=== PATIENT | male | born 1960 | race Caucasian/White ===

== ENCOUNTER → 2017-05-08 | Outpatient (CLI) | payer BC ==
--- NOTE | 2017-05-08 18:08 | PN ---
PROGRESS NOTE DATE OF SERVICE: 05/08/2017 56-year-old gentleman has been followed in Sleep Center for treatment of obstructive sleep apnea-hypopnea syndrome. The patient continues successfully using his CPAP equipment every night for the whole night without any significant problem with the mask pressure or humidification. I checked his CPAP unit. CPAP pressure is 8 cm of water. Leak is only 11 L/minute which is normal range. Apnea-hypopnea index only 0.7, which is perfect. Usage is 30/30 nights for more than 4 hours. Average usage is 6.9 hours. [place] Sleepiness Scale today is 8. MEDICATIONS: 1. Eyedrops for the dry eyes. 2. Vitamins. 3. PHYSICAL EXAM: 56-year-old gentleman without distress, BP 123/80, HR 68, RR 16, height 6 foot, 0, weight 220, BMI 29.8. The patient has lost 4 pounds since previous visit. Temperature 98.3. Oxygen saturation on room air 98%. HEENT: Oropharynx extremely low position of soft palate. Neck Supple, no JVD. Thyroid is not palpable. LUNGS Clear to percussion and to auscultation. Good air exchange. No wheezing or rhonchi. HEART S1, S2 regular. No murmurs, gallops, or rubs. ABDOMEN : Slightly obese. Soft and nontender. Bowel sounds are present. No organomegaly appreciated. EXTREMITIES No clubbing or cyanosis. ROOF PROMENADE TILE SETTER Awake, alert, and oriented X3. Cranial nerves 2 to 7 intact. There is no fasciculation or atrophy. noted. No focal deficits observed. IMPRESSION: 1. Obstructive sleep apnea-hypopnea syndrome on full control with CPAP at 8 cm of water. Patient demonstrated 100% compliance with treatment benefitting from treatment. 2. Overweight, close to obesity; BMI 29.8. 3. Dry eyes. 4. Status post arthroscopic knee surgery. PLAN: 1. Continue treatment with CPAP every night for the whole night. 2. Watching and losing weight. 3. Sleep hygiene with regular time in bed for at least 8 hours. 4. No driving if feeling sleepiness. 5. Prescription for all necessary CPAP supplies. 6. Followup visit in 1 year or earlier if patient has any problems. Thank you very much for allowing me to participate in management of your patient. Sincerely, Jamel Garcia MD, PhD, FAASM Diplomat of [employer] [employer] [place] [employer] Fuel Cell Test Engineer of [facility] [place] MMANIKA / DANA: [id number] /
== END | disposition home or self-care (01) ==
LOC: SLEEP 16:43
PROVIDERS: ATTEND Internal Medicine
DX: G47.33 Obstructive sleep apnea (adult) (pediatric) (principal); H04.123 Dry eye syndrome of bilateral lacrimal glands; E66.9 Obesity, unspecified; Z68.29 Body mass index [BMI] 29.0-29.9, adult; Z79.899 Other long term (current) drug therapy; Z98.890 Other specified postprocedural states

== ENCOUNTER 2018-03-02 17:59 | Emergency (ER) | payer BC ==
[2018-03-02 18:11] VITALS: RESP 18
[2018-03-02 18:38] LABS: Basophils % (A) 0 %; Eosinophils # (A) 0.1 k/uL (0-0.7); Eosinophils % (A) 2 %; HCT 40.6 % (39.0-53.0); HGB 13.3 gm/dL (13.0-17.5); Lymphocytes # (A) 1.7 k/uL (1.0-4.8); Lymphocytes % (A) 38 %; MCH 30.2 pg (25.0-35.0); MCHC 32.7 g/dL (31.0-37.0); MCV 92.3 fL (80.0-100.0); Mean Platelet Volume 8.3; Monocytes # (A) 0.4 k/uL (0-1.0); Monocytes % (A) 8 %; Neutrophils # (A) 2.3 k/uL (1.3-7.7); Neutrophils % (A) 50 %; Platelet Count 181 k/uL (150-450); RDW 13.2 % (11.5-15.5); WBC 4.6 k/uL (3.8-10.6)
[2018-03-02 18:48] LABS: ALT 37 U/L (21-72); AST 27 U/L (17-59); Albumin 4.3 g/dL (3.5-5.0); Alkaline Phosphatase 67 U/L (38-126); Anion Gap 8 mmol/L; Blood Urea Nitrogen 19 mg/dL (9-20); Calcium 9.4 mg/dL (8.4-10.2); Carbon Dioxide 26 mmol/L (22-30); Chloride 107 mmol/L (98-107); Glucose 107 mg/dL (74-99); Magnesium 1.9 mg/dL (1.6-2.3); Potassium 3.9 mmol/L (3.5-5.1); Sodium 141 mmol/L (137-145); Total Bilirubin 0.6 mg/dL (0.2-1.3); Total Protein 6.9 g/dL (6.3-8.2)
[2018-03-02 18:49] LABS: Partial Thromboplastin Time 23.4 sec (22.0-30.0); Prothrombin Time 9.9 sec (9.0-12.0)
[2018-03-02 18:52] LABS: Creatine Kinase 174 U/L (55-170)
--- NOTE | 2018-03-02 18:56 | XR ---
EXAMINATION TYPE: XR chest 2V DATE OF EXAM: 03/02/2018 COMPARISON: NONE HISTORY: Chest pain TECHNIQUE: Frontal and lateral views of the chest are obtained. FINDINGS: Heart and mediastinum are normal. Lungs are clear. Diaphragm is normal. Bony thorax appear s normal. IMPRESSION: Normal chest.
[2018-03-02 19:04] LABS: Creatine Kinase MB 1.9 ng/mL (0.0-2.4); Troponin I <0.012 ng/mL (0.000-0.034)
--- NOTE | 2018-03-02 19:09 | ED ---
General Adult HPI - General Chief complaint: Chest Pain Stated complaint: Chest Pain Time Seen by Provider: 03/02/18 19:08 Source: patient Mode of arrival: ambulatory Limitations: no limitations - History of Present Illness Initial comments: Lee byers and is a 57-year-old male who presents the emergency department today for evaluation of intermittent left-sided chest wall and shoulder pain. Patient reports that last week he was on vacation, he stayed home and mostly tended to projects her in the house including laying new mulch and getting projects done around the house. She reports that beginning on Friday he began having stabbing pains in his left lateral chest radiating into his left axilla. Worse with any movement of his arm or deep breathing. Pains were sudden and sharp and would cause him to hold his breath. Pains lasted for seconds and went away. Pains are not associated with any progressive or persistent shortness of breath, lightheadedness, diaphoresis or palpitations. Pain is not exertional in nature. Patient reports that he went to see his primary care physician today, he states that he was sitting in the waiting room with his arm up on the chair next to him when he had one of these pains. His primary care physician advised him come to the ER for cardiac evaluation. Patient is relatively healthy, nonsmoker, no history of hypertension, hyperlipidemia or diabetes. He has no family history of early cardiac disease. He has no personal history of cardiac disease. He does report that he sleeps with a CPAP and became concerned that perhaps he was having a pneumonia due to his CPAP he has heard recently that there are problems the CPAP machine is not being cleaned properly. - Related Data Home Medications Medication Instructions Recorded Confirmed Eye Lubricant Combination No.1 1 applic BOTH EYES DAILY 03/02/18 03/02/18 [[place]] Fexofenadine HCl [Lashanda Allergy] 180 mg PO DAILY 03/02/18 03/02/18 [place]-3 Fatty Acids/Fish Oil [Fish 1 each PO DAILY 03/02/18 03/02/18 Oil 1,000 mg Softgel] Super Digest 1 tab PO DAILY 03/02/18 03/02/18 Thyratone 1 tab PO DAILY 03/02/18 03/02/18 Allergies Allergy/AdvReac Type Severity Reaction Status Date / Time No Known Allergies Allergy Verified 03/02/18 19:50 Review of Systems ROS Statement: Those systems with pertinent positive or pertinent negative responses have been documented in the HPI. ROS Other: All systems not noted in ROS Statement are negative. Past Medical History Additional Past Medical History / Comment(s): CPAP at night History of Any Multi-Drug Resistant Organisms: None Reported Additional Past Surgical History / Comment(s): right knee orthopedic surgery Past Psychological History: No Psychological Hx Reported Smoking Status: Never smoker Past Alcohol Use History: Daily Past Drug Use History: None Reported General Exam - General Exam Comments Initial Comments: GENERAL: Patient is well-developed and well-nourished. Patient is nontoxic and well- hydrated and is in no distress. HENT: Normocephalic, Atraumatic. Neck is soft and supple. No significant lymphadenopathy is noted. Oropharynx is clear. Moist mucous membranes. Neck has full range of motion without eliciting any pain. EYES: The sclera were anicteric and conjunctiva were pink and moist. Extraocular movements were intact and pupils were equal round and reactive to light. Eyelids were unremarkable. PULMONARY: Unlabored respirations. Good breath sounds bilaterally. No audible rales rhonchi or wheezing was noted. CARDIOVASCULAR: There is a regular rate and rhythm without any murmurs gallops or rubs. ABDOMEN: Soft and nontender with normal bowel sounds. SKIN: Skin is clear with no lesions or rashes and otherwise unremarkable. NEUROLOGIC: Patient is alert and oriented x3. Cranial nerves II through XII are grossly intact. Motor and sensory are also intact. Normal speech, volume and content. Symmetrical smile. MUSCULOSKELETAL: Normal extremities with adequate strength and full range of motion. No lower extremity swelling or edema. No calf tenderness. Some pain with movement of the left shoulder, full range of motion noted the joint is not red or erythematous, no signs of infection LYMPHATICS: No significant lymphadenopathy is noted PSYCHIATRIC: Normal psychiatric evaluation. Limitations: no limitations Limitations: no limitations Course Vital Signs 03/02/18 03/02/18 18:07 20:19 Temperature 98.4 F 98.3 F Pulse Rate 73 77 Respiratory 18 18 Rate Blood Pressure 137/80 133/78 O2 Sat by Pulse 98 98 Oximetry EKG Findings - EKG Comments: EKG Findings:: EKG at 1819, rate is 58, rhythm is sinus bradycardia, normal axis , normal intervals, no acute ST elevations or depressions no evidence of acute ischemia or infarction. Medical Decision Making - Medical Decision Making Patient was seen and evaluated, history was obtained from the patient Patient presenting to the ED via private vehicle for evaluation of left-sided chest wall pain worse with movement of his arm. Pain was worse on Friday and has progressively improved since that time however his insisted he be evaluated today. I have a high suspicion for musculoskeletal chest pain, however given the patient's age a Cardiac workup was ordered Chest x-ray with no acute findings EKG is sinus bradycardia with no acute findings Troponin negative, CPK is mildly elevated, these results were discussed with patient and at bedside, at this time I do feel that considering the patient 's pain is improving over the past 2 days is reproducible and she'll is likely to his pain is secondary to a musculoskeletal cause. Patient are in agreement with this. At this time I feel the patient is stable for discharge home with outpatient follow-up. Return parameters including any worsening pain , diaphoresis, shortness breath, lightheadedness or new or concerning symptoms were discussed with the patient and his . All questions pertaining to care were answered best my ability patient was discharged home in stable condition. - Lab Data Result diagrams: 03/02/18 18:26 03/02/18 18:26 Lab Results 03/02/18 03/02/18 03/02/18 Range/Units 18:26 18:26 18:26 WBC 4.6 (3.8-10.6) k/uL RBC 4.40 (4.30-5.90) m/uL Hgb 13.3 (13.0-17.5) gm/dL Hct 40.6 (39.0-53.0) % MCV 92.3 (80.0-100.0) fL MCH 30.2 (25.0-35.0) pg MCHC 32.7 (31.0-37.0) g/dL RDW 13.2 (11.5-15.5) % Plt Count 181 (150-450) k/uL Neutrophils % 50 % Lymphocytes % 38 % Monocytes % 8 % Eosinophils % 2 % Basophils % 0 % Neutrophils # 2.3 (1.3-7.7) k/uL Lymphocytes # 1.7 (1.0-4.8) k/uL Monocytes # 0.4 (0-1.0) k/uL Eosinophils # 0.1 (0-0.7) k/uL Basophils # 0.0 (0-0.2) k/uL PT (9.0-12.0) sec INR (<1.2) APTT (22.0-30.0) sec Sodium 141 (137-145) mmol/L Potassium 3.9 (3.5-5.1) mmol/L Chloride 107 (98-107) mmol/L Carbon Dioxide 26 (22-30) mmol/L Anion Gap 8 mmol/L BUN 19 (9-20) mg/dL Creatinine 0.70 (0.66-1.25) mg/dL Est GFR (CKD-EPI)AfAm >90 (>60 ml/min/1.73 sqM) Est GFR (CKD-EPI)NonAf >90 (>60 ml/min/1.73 sqM) Glucose 107 H (74-99) mg/dL Calcium 9.4 (8.4-10.2) mg/dL Magnesium 1.9 (1.6-2.3) mg/dL Total Bilirubin 0.6 (0.2-1.3) mg/dL AST 27 (17-59) U/L ALT 37 (21-72) U/L Alkaline Phosphatase 67 (38-126) U/L Total Creatine Kinase 174 H (55-170) U/L CK-MB (CK-2) 1.9 (0.0-2.4) ng/mL CK-MB (CK-2) Rel Index 1.1 Troponin I <0.012 (0.000-0.034) ng/mL Total Protein 6.9 (6.3-8.2) g/dL Albumin 4.3 (3.5-5.0) g/dL 03/02/18 Range/Units 18:26 WBC (3.8-10.6) k/uL RBC (4.30-5.90) m/uL Hgb (13.0-17.5) gm/dL Hct (39.0-53.0) % MCV (80.0-100.0) fL MCH (25.0-35.0) pg MCHC (31.0-37.0) g/dL RDW (11.5-15.5) % Plt Count (150-450) k/uL Neutrophils % % Lymphocytes % % Monocytes % % Eosinophils % % Basophils % % Neutrophils # (1.3-7.7) k/uL Lymphocytes # (1.0-4.8) k/uL Monocytes # (0-1.0) k/uL Eosinophils # (0-0.7) k/uL Basophils # (0-0.2) k/uL PT 9.9 (9.0-12.0) sec INR 1.0 (<1.2) APTT 23.4 (22.0-30.0) sec Sodium (137-145) mmol/L Potassium (3.5-5.1) mmol/L Chloride (98-107) mmol/L Carbon Dioxide (22-30) mmol/L Anion Gap mmol/L BUN (9-20) mg/dL Creatinine (0.66-1.25) mg/dL Est GFR (CKD-EPI)AfAm (>60 ml/min/1.73 sqM) Est GFR (CKD-EPI)NonAf (>60 ml/min/1.73 sqM) Glucose (74-99) mg/dL Calcium (8.4-10.2) mg/dL Magnesium (1.6-2.3) mg/dL Total Bilirubin (0.2-1.3) mg/dL AST (17-59) U/L ALT (21-72) U/L Alkaline Phosphatase (38-126) U/L Total Creatine Kinase (55-170) U/L CK-MB (CK-2) (0.0-2.4) ng/mL CK-MB (CK-2) Rel Index Troponin I (0.000-0.034) ng/mL Total Protein (6.3-8.2) g/dL Albumin (3.5-5.0) g/dL Disposition Clinical Impression: Atypical chest pain Disposition: HOME SELF-CARE Condition: Good Instructions: Chest Pain (ED), Musculoskeletal Pain (ED) Is patient prescribed a controlled substance at d/c from ED?: No Referrals: Aissatou Cota MD [Primary Care Provider] - 1-2 days Time of Disposition: 20:06
[2018-03-02 20:20] VITALS: BP 133/78; PULSE 77; TEMP 98.3
== END 2018-03-02 20:19 | disposition home or self-care (01) ==
LOC: EC 17:59
DX: R07.89 Other chest pain (principal); M25.512 Pain in left shoulder; Z99.89 Dependence on other enabling machines and devices; Z79.899 Other long term (current) drug therapy
CPT/HCPCS: 36415; 71046; 80053; 82550; 82553; 83735; 84484; 85025; 85610; 85730; 93005; 99285

== ENCOUNTER → 2018-07-23 | Outpatient (CLI) | payer BC ==
[2018-07-24 03:29] LABS: ALT 32 U/L (10-49); AST 28 U/L (14-35)
== END | disposition home or self-care (01) ==
LOC: LABWHC1 17:09
PROVIDERS: ATTEND Podiatrist Foot & Ankle Surgery
DX: K74.60 Unspecified cirrhosis of liver (principal)
CPT/HCPCS: 36415; 84450; 84460

== ENCOUNTER → 2018-09-10 | Outpatient (CLI) | payer BC ==
[2018-09-11 02:35] LABS: ALT 45 U/L (10-49); AST 38 U/L (14-35)
== END | disposition home or self-care (01) ==
LOC: LABWHC1 16:33
PROVIDERS: ATTEND Podiatrist Foot & Ankle Surgery
DX: K74.60 Unspecified cirrhosis of liver (principal)
CPT/HCPCS: 36415; 84450; 84460

== ENCOUNTER → 2020-01-19 | Outpatient (CLI) | payer BC ==
--- NOTE | 2020-01-19 20:33 | SFUN ---
SLEEP CENTER FOLLOW UP NOTE DATE OF SERVICE: 01/19/2020 This patient is a 59-year-old gentleman who has been followed in Sleep Center for treatment of obstructive sleep apnea-hypopnea syndrome. The patient successfully continues to use his CPAP equipment every night for the whole night. No snoring with CPAP. [place] Sleepiness Scale is 6, which is acceptable. I checked his CPAP unit. CPAP pressure is 8 cm of water. Usage is 30/30 nights for more than 4 hours with average usage 7.3 hours per night. Leak is 17 L/minute, which is acceptable. Apnea-hypopnea index is 0.7, which is normal. MEDICATIONS: Eye drops for dry eyes. Vitamins. PHYSICAL EXAMINATION: GENERAL: A pleasant patient in no distress. VITAL SIGNS: BP 125/89, HR 70, RR 16, height 6 feet 0 inches, weight 208, body mass index 28.2, temperature 98.2, oxygen saturation at room air 97%. HEENT: PERRLA, EOMI. Evaluation of oropharynx showed tongue protrudes midline. Extremely low position of soft palate. Mallampati IV. NECK: Supple. No JVD. Thyroid is not palpable. Neck measures 16 inches in circumference. LUNGS: Clear to percussion and to auscultation. Good air exchange. No wheezing or rhonchi. HEART: S1, S2 regular. No murmurs, gallops or rubs. ABDOMEN: Soft and nontender. Bowel sounds are present. No organomegaly. EXTREMITIES: No clubbing or cyanosis. INVENTORY MANAGER: Awake, alert, and oriented X3. Cranial nerves 2 to 7 intact. There is no fasciculation or atrophy. noted. No focal deficits observed. IMPRESSION: 1. Obstructive sleep apnea-hypopnea syndrome. Patient demonstrated 100% compliance with treatment, benefitting from treatment. 2. History of dry eyes. 3. Status post arthroscopic knee surgery. 4. Overweight. PLAN: 1. Patient will continue to use PAP equipment every night for the whole night. 2. Sleep hygiene with regular time in bed for at least 7-1/2 to 8 hours. 3. Precautions related to driving. No driving if feeling sleepiness. 4. I will maintain all necessary prescription for PAP supplies including mask, tube, filters. 5. Watching weight. 6. No driving if feeling sleepiness. 7. Follow-up visit in one year, or earlier if patient has any problems. Thank you very much for allowing me to participate in the management of your patient. Sincerely, Jamel Garcia MD, PhD, FAASM Diplomat of [place] [employer] City Planning Engineer of [facility] [place] RONNIE / DANA: [id number] /
== END | disposition home or self-care (01) ==
LOC: SLEEP 16:47
PROVIDERS: ATTEND Internal Medicine
DX: G47.33 Obstructive sleep apnea (adult) (pediatric) (principal); Z99.89 Dependence on other enabling machines and devices; E66.3 Overweight; Z87.898 Personal history of other specified conditions; Z98.890 Other specified postprocedural states

== ENCOUNTER → 2020-09-28 | Outpatient (CLI) | payer BC ==
--- NOTE | 2020-09-28 19:56 | SFUN ---
SLEEP CENTER FOLLOW UP NOTE DATE OF SERVICE: 09/28/2020 This 59-year-old gentleman has been followed in Sleep Center for treatment of obstructive sleep apnea-hypopnea syndrome. The patient continues to use his CPAP equipment every night for the whole night. The last time I saw the patient was one year ago. No significant changes in his health condition. No snoring with the machine. [place] Sleepiness Scale is 5. I checked his CPAP unit. CPAP pressure is 8 cm of water. Usage is 30/30 nights for more than 4 hours. Average usage is 7.3 hours per night. Leak is 10 L/minute, which is acceptable. Apnea-hypopnea index is only 0.7, which is perfect. MEDICATIONS: Fish oil, antihistamine medications over the counter. PHYSICAL EXAMINATION: GENERAL: A pleasant patient in no distress. VITAL SIGNS: BP 138/84, HR 65, RR 15, height 6 feet 1/2 inch, weight 217.2 pounds. The patient's weight increased by 9 pounds since his previous visit. Temperature 98.7, oxygen saturation at room air 98%. HEENT: PERRLA, EOMI. Evaluation of oropharynx showed tongue protrudes midline. Extremely low position of soft palate. Mallampati IV. NECK: Supple. No JVD. Thyroid is not palpable. LUNGS: Clear to percussion and to auscultation. Good air exchange. No wheezing or rhonchi. HEART: S1, S2 regular. No murmurs, gallops or rubs. ABDOMEN: Soft and nontender. Bowel sounds are present. No organomegaly appreciated. EXTREMITIES: No clubbing or cyanosis. LINE HAUL OWNER OPERATOR: Awake, alert, and oriented X3. Cranial nerves 2 to 7 intact. There is no fasciculation or atrophy. noted. No focal deficits observed. IMPRESSION: 1. Obstructive sleep apnea-hypopnea syndrome. Patient demonstrated 100% compliance with treatment, benefitting from treatment. 2. History of dry eyes. 3. Allergies. 4. Status post arthroscopic knee surgery. 5. Overweight. BMI 29.7. The patient's weight increased compared to the previous visit. PLAN: 1. Patient will continue to use PAP equipment every night for the whole night. 2. Sleep hygiene with regular time in bed for at least 7-1/2 to 8 hours. 3. Precautions related to driving. No driving if feeling sleepiness. 4. I will maintain all necessary prescription for PAP supplies including mask, tube, filters. 5. Watching weight. 6. Follow-up visit in 6 months or earlier if patient has any problems. Thank you very much for allowing me to participate in the management of your patient. Sincerely, Jamel Garcia MD, PhD, FAASM Diplomat of [place] Hat And Cap Opener of [facility] [place] MMODL / RAMONN: [id number] /
== END ==
LOC: SLEEP 16:29
PROVIDERS: ATTEND Internal Medicine
DX: G47.33 Obstructive sleep apnea (adult) (pediatric) (principal); Z96.659 Presence of unspecified artificial knee joint; E66.9 Obesity, unspecified; Z68.29 Body mass index [BMI] 29.0-29.9, adult; T78.40XA Allergy, unspecified, initial encounter; Z86.69 Personal history of other diseases of the nervous system and sense organs

== ENCOUNTER → 2021-02-28 | Outpatient (CLI) | payer BC ==
--- NOTE | 2021-02-28 10:56 | XR ---
EXAMINATION TYPE: XR chest 2V DATE OF EXAM: 02/28/2021 COMPARISON: 03/02/18 HISTORY: Shortness of breath TECHNIQUE: Frontal and lateral views of the chest are obtained. FINDINGS: Scattered senescent parenchymal changes noted. Hyperinflation compatible with COPD. No evidence for infiltrate. No evidence for atelectasis. Heart size is stable. Mediastinal structures are stable and grossly unremarkable. No evidence for hilar prominence. Degenerative changes dorsal spine. IMPRESSION: 1. No evidence for acute pulmonary disease.
[2021-02-28 15:24] LABS: HCT 41.9 % (39.6-50.0); HGB 14.4 g/dL (13.0-17.0); RBC 4.48 X 10*6/uL (4.40-5.60); WBC 4.59 X 10*3/uL (4.50-10.00)
[2021-02-28 15:25] LABS: Basophils # (A) 0.03 X 10*3/uL (0.00-0.10); Basophils % (A) 0.7 %; Eosinophils # (A) 0.08 X 10*3/uL (0.04-0.35); Eosinophils % (A) 1.7 %; Lymphocytes % (A) 32.7 %; MCH 32.1 pg (27.0-32.0); MCHC 34.4 g/dL (32.0-37.0); MCV 93.5 fL (80.0-97.0); Mean Platelet Volume 10.3 fL (9.5-12.2); Monocytes # (A) 0.54 X 10*3/uL (0.20-1.00); Monocytes % (A) 11.8 %; Neutrophils # (A) 2.43 X 10*3/uL (1.80-7.70); Neutrophils % (A) 52.9 %; Platelet Count 205 X 10*3/uL (140-440); RDW 12.2 % (11.5-14.5)
[2021-02-28 18:28] LABS: African American GFR (CKD) 108.7 (60.0-200.0); Albumin 4.4 g/dL (3.80-4.90); Albumin/Globulin Ratio 1.91 (1.60-3.17); Anion Gap 8.5 mmol/L (4.00-12.00); BUN/Creat Ratio 16.67 Ratio (12.00-20.00); Calcium 9.2 mg/dL (8.7-10.3); Carbon Dioxide 29.5 mmol/L (21.6-31.8); Chol/HDL Ratio 3.23; Globulin 2.3 g/dL (1.6-3.3); LDL Cholesterol,Calculated 87.2 mg/dL (0.0-131.0); Non-African American GFR(CKD) 93.8 (60.0-200.0); Potassium 4.7 mmol/L (3.5-5.5); Total Bilirubin 0.9 mg/dL (0.2-1.2); Total Protein 6.7 g/dL (6.2-8.2); VLDL Calculation 10.8 mg/dL (5.00-40.00)
[2021-02-28 18:37] LABS: PSA Annual Screen 1.4 ng/mL (0.0-4.0)
== END | disposition home or self-care (01) ==
LOC: LABWHC1 09:37
PROVIDERS: ATTEND Internal Medicine
DX: Z00.01 Encounter for general adult medical examination with abnormal findings (principal); R06.02 Shortness of breath
CPT/HCPCS: 80061; 80053; 85025; 71046; 36415; G0103

== ENCOUNTER → 2021-04-12 | Outpatient (CLI) | payer BC ==
--- NOTE | 2021-04-12 19:33 | SFUN ---
SLEEP CENTER FOLLOW UP NOTE DATE OF SERVICE: 04/12/2021 This 60-year-old gentleman has been followed in Sleep Center for treatment of obstructive sleep apnea-hypopnea syndrome. The patient continues to use his CPAP equipment every night for the whole night. He is getting his CPAP supplies on time. [place] Sleepiness Scale today is 6, which is normal. I checked his CPAP unit. CPAP pressure is 8 cm of water. Usage is 30/30 nights for more than 4 hours, average 8.2 hours per night. Leak is 11 L/minute, which is acceptable. Apnea-hypopnea index is only 0.8, which is perfect. MEDICATIONS: No prescribed medications. Antihistamine medications over the counter. PHYSICAL EXAMINATION: GENERAL: Pleasant patient in no distress. VITAL SIGNS: BP 123/76, HR 65, RR 15, height 6 feet 1-1/2 inches, weight 215 pounds, body mass index 28.7. Patient lost about 2 pounds. Temperature 97.5, oxygen saturation at room air 97%. HEENT: PERRLA, EOMI, evaluation of oropharynx showed tongue protrudes midline. Extremely low position of soft palate; Mallampati IV. NECK: Supple, no JVD. Thyroid is not palpable. LUNGS: Clear to percussion and to auscultation. Good air exchange. No wheezing or rhonchi. HEART: S1, S2 regular. No murmurs, gallops, or rubs. ABDOMEN: Soft and nontender. Bowel sounds are present. No organomegaly appreciated. EXTREMITIES: No clubbing or cyanosis. GROOVING LATHE TENDER: Awake, alert, and oriented X3. Cranial nerves 2 to 7 intact. There is no fasciculation or atrophy. noted. No focal deficits observed. IMPRESSION: 1. Obstructive sleep apnea-hypopnea syndrome. Patient demonstrated 100% compliance with treatment. Normal respiration on CPAP. 2. History of allergies. 3. History of dry eyes. 4. Status post arthroscopic knee surgery. 5. Overweight. The patient lost 2 pounds. PLAN: 1. The patient is using the Clean system for the CPAP. By some data today, it is better to not use this system. 2. Patient will continue to use PAP equipment every night for the whole night. 3. Sleep hygiene with regular time in bed for at least 7-1/2 to 8 hours. 4. Precautions related to driving. No driving if feeling sleepiness. 5. I will maintain all necessary prescription for PAP supplies including mask, tube, filters. 6. Watching weight. 7. Follow-up visit in 6 months or earlier if patient has any problems. Thank you very much for allowing me to participate in the management of your patient. Sincerely, Jamel Garcia MD, PhD, FAASM Diplomat of [employer] Specialties Sleep Medicine Board of [employer] of Internal Medicine Bakery Worker Conveyor Line of [facility] [place] MMODL / DANA: [id number] /
== END ==
LOC: SLEEP 16:57
PROVIDERS: ATTEND Internal Medicine
DX: G47.33 Obstructive sleep apnea (adult) (pediatric) (principal); E66.3 Overweight; Z68.28 Body mass index [BMI] 28.0-28.9, adult; Z87.892 Personal history of anaphylaxis; Z99.89 Dependence on other enabling machines and devices

== ENCOUNTER → 2021-10-17 | Outpatient (CLI) | payer BC ==
--- NOTE | 2021-10-17 20:32 | SFUN ---
SLEEP CENTER FOLLOW UP NOTE DATE OF SERVICE: 10/17/2021 This 60-year-old gentleman has been followed in Sleep Center for treatment of obstructive sleep apnea-hypopnea syndrome. The patient continues to use his CPAP equipment every night, getting his supplies on time. [place] Sleepiness Scale today is 7, which is in normal range. I checked his CPAP unit. Pressure is 8 cm of water. Usage is 30/30 nights for more than 4 hours, average 6.7 hours per night. Leak is 8 L/minute, which is in normal range. Apnea-hypopnea index is 0.5, which is normal. MEDICATIONS: Antihistamine medications over the counter. PHYSICAL EXAMINATION: GENERAL: Pleasant patient in no distress. VITAL SIGNS: BP 131/77, HR 66, RR 16, weight 216.4, temperature 97.0, oxygen saturation at room air 96%. HEENT: PERRLA, EOMI, evaluation of oropharynx showed tongue protrudes midline. Extremely low position of soft palate; Mallampati IV. NECK: Supple, no JVD. Thyroid is not palpable. LUNGS: Clear to percussion and to auscultation. Good air exchange. No wheezing or rhonchi. HEART: S1, S2 regular. No murmurs, gallops, or rubs. ABDOMEN: Soft and nontender. Bowel sounds are present. No organomegaly appreciated. EXTREMITIES: No clubbing or cyanosis. ACCOUNT DEVELOPMENT ASSOCIATE: Awake, alert, and oriented X3. Cranial nerves 2 to 7 intact. There is no fasciculation or atrophy. noted. No focal deficits observed. IMPRESSION: 1. Obstructive sleep apnea-hypopnea syndrome. Patient demonstrated great compliance with treatment, benefitting from treatment. 2. History of allergies. 3. History of dry eye. 4. Status post arthroscopic knee surgery. 5. Overweight. PLAN: 1. Patient will continue to use PAP equipment every night for the whole night. 2. Sleep hygiene with regular time in bed for at least 7-1/2 to 8 hours. 3. Precautions related to driving. No driving if feeling sleepiness. 4. I will maintain all necessary prescription for PAP supplies including mask, tube, filters. 5. Watching weight. 6. Follow-up visit in 6 months or earlier if patient has any problems. Thank you very much for allowing me to participate in the management of your patient. Sincerely, Jamel Garcia MD, PhD, FAASM Diplomat of [place] [employer] Sleep Medicine Board of [place] [employer] of Internal Medicine Hris Analyst of [facility] [place] MMANIKA / DANA: [id number] /
== END ==
LOC: SLEEP 16:38
PROVIDERS: ATTEND Internal Medicine
DX: G47.33 Obstructive sleep apnea (adult) (pediatric) (principal); E66.3 Overweight; Z91.048 Other nonmedicinal substance allergy status; Z98.890 Other specified postprocedural states; Z99.89 Dependence on other enabling machines and devices

== ENCOUNTER → 2022-05-31 | Outpatient (CLI) | payer BC ==
[2022-05-31 10:10] LABS: Basophils # (A) 0.03 X 10*3/uL (0.00-0.10); Basophils % (A) 0.6 %; Eosinophils # (A) 0.09 X 10*3/uL (0.04-0.35); Eosinophils % (A) 1.8 %; HCT 41.2 % (39.6-50.0); HGB 13.9 g/dL (13.0-17.0); Immature Grans, Automated 0.4 %; Lymphocytes # (A) 1.82 X 10*3/uL (0.90-5.00); Lymphocytes % (A) 35.5 %; MCH 31.1 pg (27.0-32.0); MCHC 33.7 g/dL (32.0-37.0); MCV 92.2 fL (80.0-97.0); Mean Platelet Volume 10.2 fL (9.5-12.2); Monocytes # (A) 0.59 X 10*3/uL (0.20-1.00); Monocytes % (A) 11.5 %; NRBC Per 100 WBC 0 /100 WBCS (0.0-0.0); Neutrophils # (A) 2.58 X 10*3/uL (1.80-7.70); Neutrophils % (A) 50.2 %; Platelet Count 187 X 10*3/uL (140-440); RBC 4.47 X 10*6/uL (4.40-5.60); RDW 12.5 % (11.5-14.5); WBC 5.13 X 10*3/uL (4.50-10.00)
[2022-05-31 10:26] LABS: ALT 37 U/L (10-49); AST 23 U/L (14-35); African American GFR (CKD) 113.3 (60.0-200.0); Albumin 4.4 g/dL (3.8-4.9); Alkaline Phosphatase 78 U/L (41-126); BUN/Creat Ratio 25.38 Ratio (12.00-20.00); Blood Urea Nitrogen 20.3 mg/dL (9.0-27.0); Calcium 9.6 mg/dL (8.7-10.3); Carbon Dioxide 30.9 mmol/L (20.0-27.5); Chloride 106 mmol/L (96-109); Chol/HDL Ratio 2.48 Ratio; Globulin 2.2 g/dL (1.6-3.3); Glucose 105 mg/dL (70-110); LDL Cholesterol,Calculated 72.1 mg/dL (0.0-131.0); Non-African American GFR(CKD) 97.8 (60.0-200.0); Potassium 5.3 mmol/L (3.5-5.5); Sodium 144 mmol/L (135-145); Total Protein 6.6 g/dL (6.2-8.2); VLDL Calculation 16.78 mg/dL (5.00-40.00)
== END | disposition home or self-care (01) ==
LOC: LABWHC1 07:15
PROVIDERS: ATTEND Internal Medicine
DX: Z00.01 Encounter for general adult medical examination with abnormal findings (principal); Z12.5 Encounter for screening for malignant neoplasm of prostate; Z13.220 Encounter for screening for lipoid disorders
CPT/HCPCS: 36415; 80053; 80061; 84153; 85025

== ENCOUNTER → 2022-06-19 | Outpatient (CLI) | payer BC ==
--- NOTE | 2022-06-19 17:10 | P.PN ---
Subjective DATE: 06/19/2022 FOLLOW UP VISIT. Patient with obstructive sleep apnea hypopnea syndrome return to sleep center for follow-up visit. Information from previous visit have been reviewed. Patient is using PAP equipment every night for the whole night, getting PAP supplies in time. The patient does not have significant problems with the mask, PAP unit and humidification. [place] sleepiness scale is 4, which is normal. I checked information from PAP unit. PAP unit pressure 8 cm H2O. Usage is 100 % for more then 4 hours, average 7.4 hours per night. Leak is 14 l/m, which is in acceptable range. Apnea Hypopnea Index is 1.2, which is normal. MEDICATIONS:1. Antihistamines 2. Vitamins During physical exam: GENERAL: A pleasant patient without any distress. VITAL SIGNS: BP 124/75, HR 69, RR 16 , weight 212.2 patient lost 4 pounds since previous visit, temperature 97, oxygen saturation at room air 97 % . HEENT: PERRLA, EOMI.low position of soft palate, Mallapati 4 . NECK: Supple. No JVD. LUNGS: Clear to percussion and to auscultation. Good air exchange. No wheezing or rhonchi. HEART: S1, S2 regular. ABDOMEN: Soft and nontender.[] EXTREMITIES: No clubbing or cyanosis. SENIOR UI DEVELOPER: Awake, alert, and oriented x3. No focal deficit. Impressions: 1. Obstructive sleep apnea-hypopnea syndrome. Patient demonstrated great compliance with treatment, benefiting from treatment. 2. History of ALLERGIES. 3. Status post arthroscopic knee surgery. 4. History of dry eye. Plan: 1. Continue using PAP equipment every night for the whole night. 2. To change air filter at least 1-2 times per month. 3. PAP unit should stay lower then position of the head. 4. Advised patient to remove all remaining water from humidifier canister daily and make it dry after each usage. Refill canister with fresh distilled water before each usage. 5. Sleep hygiene with regular time in bed for at least 8 hours. 6. Precautions related to driving. No driving if feel any sleepiness. 7. I will maintain prescription for PAP supplies including mask, tube, filters. 8. Follow up visit in 6 months or earlier if patient has any problems. 9. Watching weight. Thank you very much for allowing me to participate in the management of your patient. Jamel Garcia MD, PhD, FAASM. Diplomat of [employer], Sleep Medicine Board by [employer] [facility] [place]
== END ==
LOC: SLEEP 16:40
PROVIDERS: ATTEND Internal Medicine
DX: G47.33 Obstructive sleep apnea (adult) (pediatric) (principal); Z99.89 Dependence on other enabling machines and devices; Z98.890 Other specified postprocedural states; H04.129 Dry eye syndrome of unspecified lacrimal gland
CPT/HCPCS: 99212

== ENCOUNTER → 2023-01-16 | Outpatient (CLI) | payer BC ==
--- NOTE | 2023-01-16 17:08 | P.PN ---
Subjective DATE: 01/16/2023 FOLLOW UP VISIT. Patient with obstructive sleep apnea hypopnea syndrome return to sleep center for follow-up visit. Information from previous visit have been reviewed. Patient is using PAP equipment every night for the whole night, getting PAP supplies in time. The patient does not have significant problems with the mask, PAP unit and humidification. [place] sleepiness scale is 5, which is normal. I checked information from PAP unit. PAP unit pressure 8 cm H2O. The patient continued to use CPAP equipment every night for the whole night, average 7 hours 26 minutes per night. One knob is not working, probably cannot check apnea-hypopnea index and level of leak. Medications: None During physical exam: GENERAL: A pleasant patient without any distress. VITAL SIGNS: BP 114/72, HR 79, RR 12 , weight 213.0, temperature 97.3, oxygen saturation at room air 97 % . HEENT: PERRLA, EOMI.low position of soft palate, Mallapati 4 . NECK: Supple. No JVD. LUNGS: Clear to percussion and to auscultation. Good air exchange. No wheezing or rhonchi. HEART: S1, S2 regular. ABDOMEN: Soft and nontender.[] EXTREMITIES: No clubbing or cyanosis. DIRECTOR OF PEOPLE: Awake, alert, and oriented x3. No focal deficit. Impressions: 1. Obstructive sleep apnea-hypopnea syndrome. Patient demonstrated great compliance with treatment, benefiting from treatment.CPAP. Doesn't work well . 2. history of ALLERGIES. 3. status post arthroscopic knee surgery. 4. history of dry eye. Plan: 1. Continue using PAP equipment every night for the whole night. Prescription to replace CPAP unit. 2. To change air filter at least 1-2 times per month. 3. PAP unit should stay lower then position of the head. 4. Advised patient to remove all remaining water from humidifier canister daily and make it dry after each usage. Refill canister with fresh distilled water before each usage. 5. Sleep hygiene with regular time in bed for at least 8 hours. 6. Precautions related to driving. No driving if feel any sleepiness. 7. I will maintain prescription for PAP supplies including mask, tube, filters. 8. Follow up visit in 2 months after patient will get new CPAP unit. 9. Watching weight. Thank you very much for allowing me to participate in the management of your patient. Jamel Garcia MD, PhD, FAASM. Diplomat of [place] [employer], Sleep Medicine Board by [employer] [facility] [place]
== END ==
LOC: 3 N SLEEP 16:11
PROVIDERS: ATTEND Internal Medicine
DX: G47.33 Obstructive sleep apnea (adult) (pediatric) (principal); H04.129 Dry eye syndrome of unspecified lacrimal gland; Z99.89 Dependence on other enabling machines and devices; Z98.890 Other specified postprocedural states
CPT/HCPCS: 99212

== ENCOUNTER → 2023-07-21 | Outpatient (CLI) | payer BC ==
[2023-07-21 15:53] LABS: Basophils # (A) 0.03 X 10*3/uL (0.00-0.10); Basophils % (A) 0.7 %; Eosinophils # (A) 0.07 X 10*3/uL (0.04-0.35); Eosinophils % (A) 1.6 %; HCT 42.2 % (39.6-50.0); HGB 14.4 g/dL (13.0-17.0); Lymphocytes # (A) 1.88 X 10*3/uL (0.90-5.00); Lymphocytes % (A) 41.9 %; MCHC 34.1 g/dL (32.0-37.0); MCV 90.9 FL (80.0-97.0); Mean Platelet Volume 9.8 FL (9.5-12.2); Monocytes # (A) 0.56 X 10*3/uL (0.20-1.00); Monocytes % (A) 12.5 %; NRBC Per 100 WBC 0 X 10*3/uL (0.00-0.01); Neutrophils # (A) 1.94 X 10*3/uL (1.80-7.70); Neutrophils % (A) 43.1 %; Platelet Count 238 X 10*3/uL (140-440); RBC 4.64 X 10*6/uL (4.40-5.60); RDW 12.5 % (11.5-14.5); WBC 4.49 X 10*3/uL (4.50-10.00)
[2023-07-21 16:46] LABS: ALT 42 U/L (10-49); AST 33 U/L (14-35); Albumin 4.5 g/dL (3.8-4.9); Albumin/Globulin Ratio 2.05 Ratio (1.60-3.17); Alkaline Phosphatase 79 U/L (41-126); BUN/Creat Ratio 20.22 Ratio (12.00-20.00); Blood Urea Nitrogen 18.2 mg/dL (9.0-27.0); Calcium 9.5 mg/dL (8.7-10.3); Carbon Dioxide 26.6 mmol/L (21.6-31.8); Chloride 105 mmol/L (96-109); Chol/HDL Ratio 2.69 Ratio; Globulin 2.2 g/dL (1.6-3.3); Glucose 97 mg/dL (70-110); LDL Cholesterol,Calculated 81.1 mg/dL (0.0-131.0); Potassium 4.4 mmol/L (3.5-5.5); Prostate Specific Antigen 1.73 ng/mL (0.000-4.500); Sodium 143 mmol/L (135-145); Total Bilirubin 1.3 mg/dL (0.3-1.2); Total Protein 6.7 g/dL (6.2-8.2); VLDL Calculation 10.62 mg/dL (5.00-40.00)
== END | disposition home or self-care (01) ==
LOC: LABWHC1 09:56
PROVIDERS: ATTEND Internal Medicine
DX: Z00.01 Encounter for general adult medical examination with abnormal findings (principal); Z12.5 Encounter for screening for malignant neoplasm of prostate; Z13.220 Encounter for screening for lipoid disorders
CPT/HCPCS: 36415; 80053; 80061; 84153; 85025

== ENCOUNTER → 2023-08-13 | Outpatient (CLI) | payer BC ==
--- NOTE | 2023-08-13 16:33 | P.PN ---
Subjective DATE: 01/24/2024 FOLLOW UP VISIT. Patient with obstructive sleep apnea hypopnea syndrome return to sleep center for follow-up visit, this is first visit after patient received new CPAP unit. Information from previous visit have been reviewed. Patient is using PAP equipment every night for the whole night, getting PAP supplies in time. The patient does not have significant problems with the mask, PAP unit and humidification. [place] sleepiness scale is, which is normal. I checked information from PAP unit. PAP unit pressure 6-10 cm H2O. Usage is 100 % for more then 4 hours, average 7.6 hours per night. Leak is on l/m, which is in acceptable range. Apnea Hypopnea Index is 1.0, which is normal. MEDICATIONS: None at the present time During physical exam: GENERAL: A pleasant patient without any distress. VITAL SIGNS: BP 136/77, HR 81, RR 16 , weight 222.8, temperature 98.0, oxygen saturation at room air 98 % . HEENT: PERRLA, EOMI.low position of soft palate, Mallapati 4 . NECK: Supple. No JVD. LUNGS: Clear to percussion and to auscultation. Good air exchange. No wheezing or rhonchi. HEART: S1, S2 regular. ABDOMEN: Soft and nontender.[] EXTREMITIES: No clubbing or cyanosis. MEDICAL GENETICS DIRECTOR: Awake, alert, and oriented x3. No focal deficit. Impressions: 1. Obstructive sleep apnea-hypopnea syndrome. Patient demonstrated great compliance with treatment, benefiting from treatment. 2. History of ALLERGIES. 3. Status post arthroscopic knee surgery. 4. History of dry eye. Plan: 1. Continue using PAP equipment every night for the whole night. 2. To change air filter at least 1-2 times per month. 3. PAP unit should stay lower then position of the head. 4. Advised patient to remove all remaining water from humidifier canister daily and make it dry after each usage. Refill canister with fresh distilled water before each usage. 5. Sleep hygiene with regular time in bed for at least 8 hours. 6. Precautions related to driving. No driving if feel any sleepiness. 7. I will maintain prescription for PAP supplies including mask, tube, filters. 8. Watching weight. 9. Follow up visit in 6 months or earlier if patient has any problems. Thank you very much for allowing me to participate in the management of your patient. Jamel Garcia MD, PhD, FAASM. Diplomat of [employer], Sleep Medicine Board by [employer] Technician [facility] [place]
== END ==
LOC: 3 N SLEEP 15:54
PROVIDERS: ATTEND Internal Medicine
DX: G47.33 Obstructive sleep apnea (adult) (pediatric) (principal); T81.89XA Other complications of procedures, not elsewhere classified, initial encounter; Z98.890 Other specified postprocedural states; Z99.89 Dependence on other enabling machines and devices; Z86.69 Personal history of other diseases of the nervous system and sense organs; Z91.09 Other allergy status, other than to drugs and biological substances
CPT/HCPCS: 99212

== ENCOUNTER → 2023-10-16 | Outpatient (CLI) | payer BC ==
--- NOTE | 2023-10-16 12:23 | MR ---
EXAMINATION TYPE: MR knee RT wo con DATE OF EXAM: 10/16/2023 COMPARISON: Pain HISTORY: Rt knee pain TECHNIQUE: Multiplanar, multisequence imaging of the right knee is performed without IV contrast. FINDINGS: There is a small bone contusions in the posterior mid tibial plateau and posterior medial femoral con dyle without discrete fracture. There is a small joint effusion and a small Butler's cyst. There is complex tears of the body and posterior horn medial meniscus which is extruded or displaced medially beneath the joint capsule. The lateral meniscus is intact. There is a partial tear of the anterior cruciate ligament. The posterior cruciate ligament and medial and lateral collateral ligaments are intact. The patellar tendon and quadriceps tendon are intact. The anterior fat pads are normal. There are a few small ganglion cysts posterior to the posterior cruciate ligament There is mild osteoarthritic change of the medial lateral compartments where there is mild thinning o f the articular cartilages and mild hypertrophic spurring of the margin of the medial compartment. Th e patellofemoral cartilage is normal. IMPRESSION: 1. Partial tear of the anterior cruciate ligament. 2. Mild bone contusions without discrete fractures as described above. 3. small joint effusion. 4. Complex tear of the medial meniscus with medial displacement of the meniscus as described above. 5. Mild osteoarthritic change of the medial and lateral compartments of the knee
== END | disposition home or self-care (01) ==
LOC: RADMRIMAIN 06:21
PROVIDERS: ATTEND Orthopaedic Surgery
DX: S80.01XA Contusion of right knee, initial encounter (principal); S83.8X1A Sprain of other specified parts of right knee, initial encounter; M17.11 Unilateral primary osteoarthritis, right knee; M25.461 Effusion, right knee

== ENCOUNTER → 2023-11-07 | Outpatient (CLI) | payer BC ==
[2023-11-07 10:18] LABS: Basophils # (A) 0.03 X 10*3/uL (0.00-0.10); Basophils % (A) 0.7 %; Eosinophils # (A) 0.13 X 10*3/uL (0.04-0.35); Eosinophils % (A) 2.8 %; HCT 40.1 % (39.6-50.0); HGB 13.8 g/dL (13.0-17.0); Lymphocytes # (A) 1.52 X 10*3/uL (0.90-5.00); Lymphocytes % (A) 33.3 %; MCH 30.9 pg (27.0-32.0); MCHC 34.4 g/dL (32.0-37.0); MCV 89.9 FL (80.0-97.0); Monocytes # (A) 0.49 X 10*3/uL (0.20-1.00); Monocytes % (A) 10.7 %; NRBC Per 100 WBC 0 X 10*3/uL (0.00-0.01); Neutrophils # (A) 2.39 X 10*3/uL (1.80-7.70); Neutrophils % (A) 52.3 %; Platelet Count 157 X 10*3/uL (140-440); RBC 4.46 X 10*6/uL (4.40-5.60); RDW 12.1 % (11.5-14.5); WBC 4.57 X 10*3/uL (4.50-10.00)
[2023-11-07 10:25] LABS: Anion Gap 9.7 mmol/L (4.00-12.00); Carbon Dioxide 25.3 mmol/L (21.6-31.8); Potassium 4.3 mmol/L (3.5-5.5)
== END | disposition home or self-care (01) ==
LOC: LABPAT 07:03
PROVIDERS: ATTEND Orthopaedic Surgery
DX: Z01.818 Encounter for other preprocedural examination (principal); M23.91 Unspecified internal derangement of right knee; R00.1 Bradycardia, unspecified
CPT/HCPCS: 80051; 85025; 93005

== ENCOUNTER 2023-11-20 12:29 | Day surgery (SDC) | payer BC ==
[~2023-11-20 12:29] MED LIST: HYDROmorphone 0.5 MG/0.5 ML SYRINGE IVP PRN; LIDOCAINE 1% (10MG/ML) FOR IV START INTRADERMA PRN; MIDAZOLAM 2 MG/2 ML VIAL IV PRN
[2023-11-20] MEDS: LACTATED RINGERS 1,000 ML IV SCH (12:55)
[2023-11-20] MEDS: ONDANSETRON 4 MG/2 ML VIAL IVP ONE (12:55)
[2023-11-20] MEDS: DEXAMETHASONE SOD PHOSPHATE 4 MG/ML 1 ML VIAL IV ONE (12:55)
--- NOTE | 2023-11-20 13:26 | HP ---
HISTORY AND PHYSICAL DATE OF SCHEDULED SURGERY: 11/20/2023 HISTORY OF PRESENT ILLNESS: Lee Mitchell is a [id number] gentleman seen with progressive right knee pain. We discussed options regarding treatment. He elected to proceed with right knee arthroscopy. Consent regarding procedure was obtained. PAST MEDICAL HISTORY: Noncontributory. PAST SURGICAL HISTORY: Left knee arthroscopy. DAILY MEDICATIONS: None. ALLERGIES: Zyrtec. SOCIAL HISTORY: Denies tobacco use. PHYSICAL EVALUATION OF RIGHT KNEE: Range of motion is 0 to 120 degrees. He has a mild effusion. Tenderness along the medial joint line. Positive medial Stella's. Ligaments stable. Hip rotation without pain. Distal neurovascular exam intact IMAGING STUDIES: Right knee radiographs revealed mild osteoarthritis. MRI right knee revealed medial meniscal tear, partial ACL tear and effusion. IMPRESSION: 1. Internal derangement of right knee with medial meniscal tear. 2. Right knee partial anterior cruciate ligament tear. PLAN: Right knee arthroscopy with partial medial meniscectomy and debridement, partial ACL tear. MMODL / IJN: [id number] /
[2023-11-20] MEDS: BUPIVACAINE (PF) 0.25% 30 ML VIAL MISCELLANE ONE ×2 (14:47→15:23)
[2023-11-20] MEDS ORDERED: PROPOFOL 10 MG/ML 20 ML VIAL IV ONE (14:53)
[2023-11-20] MEDS ORDERED: MIDAZOLAM 2 MG/2 ML VIAL ONE (14:53)
[2023-11-20] MEDS ORDERED: LIDOCAINE 1% INJ 10MG/ML (20 ML MDV) ONE (14:53)
[2023-11-20] MEDS ORDERED: KETOROLAC 30 MG/ML 1 ML VIAL ONE (14:53)
[2023-11-20] MEDS ORDERED: fentaNYL (PF) 50 MCG/ML 2 ML AMP ONE (14:53)
--- NOTE | 2023-11-20 15:44 | P.OP ---
Date of Procedure: 11/20/23 Preoperative Diagnosis: Internal derangement right knee Postoperative Diagnosis: 1. Tear medial and lateral meniscus right knee 2. Grade IV chondromalacia femoral sulcus right knee 3. Reactive synovitis medial, lateral and suprapatellar compartments right knee 4. Medial plica right knee Procedure(s) Performed: 1. Arthroscopic partial medial and lateral meniscectomy right knee 2. Arthroscopic microfracture femoral sulcus right knee 3. Arthroscopic partial synovectomy medial, lateral and suprapatellar compartments right knee 4. Arthroscopic resection medial plica right knee 5. Arthroscopic chondroplasty femoral sulcus right knee Anesthesia: TYRA, local Surgeon: Parrish Bo Estimated Blood Loss (ml): 8 Pathology: none sent Condition: stable Disposition: PACU Indications for Procedure: 63-year-old gentleman who was seen with progressive right knee pain. After having treatment options discussed, he elected to proceed with arthroscopy. Operative Findings: See description of procedure Description of Procedure: Patient was taken to the operative suite. Patient underwent a general anesthetic by the department of anesthesia. Patient was given preoperative antibiotics. The right lower extremity was placed in a well-padded arthroscopic leg rene. The right leg was prepped and draped in the normal sterile orthopedic fashion. A lateral parapatellar and suprapatellar incision was made. Trochars were inserted. Arthroscopy was initiated. Suprapatellar pouch revealed diffuse thick reactive synovitis. The patellofemoral joint appeared to articular congruently. There was grade III/IV chondromalacia of the femoral sulcus with osteochondral flap tears present. The scope was guided into the medial gutter. There were loose there were no loose bodies. There was a large plica which did impinge on the medial femoral condyle with range of motion. The scope was then guided into the medial compartment. A medial parapatellar incision was made. Trocar inserted followed by probe. There was a complex tear involving the posterior horn and mid body of the medial meniscus. There were grade I chondromalacia changes involving the medial femoral condyle without any significant tears. There was thick reactive synovitis anteriorly. I performed a partial medial meniscectomy getting down to stable meniscal tissue. I performed a partial synovectomy decompressing the reactive synovitis anteriorly. The residual meniscus was probed and was found to be stable. There was good decompression of the synovitis. Scope and probe were then guided into the intercondylar notch. Cruciates were identified, probed and found to be stable. The scope and probe were then guided into lateral compartment. There was a radial tear involving the posterior horn lateral meniscus. There was no significant chondromalacia. There was thick reactive synovitis anteriorly. I performed a partial lateral meniscectomy getting down to stable meniscal tissue. I performed a partial synovectomy decompressing the reactive synovitis anteriorly. The residual meniscus was stable. There was good decompression of the synovitis. The scope was in guided back into the suprapatellar compartment. I introduced a motorized shaver into the suprapatellar compartment. I debrided some piecemeal fragments of meniscus I encountered. I now resected that medial plica. I now performed a chondroplasty of the femoral sulcus getting down osteochondral tissue. I did note areas of exposed bonetwo along the femoral sulcus. 1 measured 1 x 2 cm and the other 1 cm in diameter. I introduced a microfracture awl and I performed microfractures to both areas of exposed bone penetrating the bone with resultant bleeding at both microfracture sites. The residual osteochondral surface was probed and was found to be stable. There was good resection medial plica and no impingement with range of motion of the knee. I now used a motorized shaver and performed a partial synovectomy decompressing the thick reactive synovitis. The shaver was removed. There was good decompression of the synovitis. I now took 1 more look around the entire knee, no residual debris. The instruments were now removed from the joint. The joint was infiltrated with .25% Marcaine. Steri-Strips were applied to the portal sites. Sterile dressings were applied. The patient was placed into a RIVERA hose. No tourniquet was utilized. The patient was awakened, transferred to a bed and taken to recovery stable satisfactory condition.
[2023-11-20 16:04] VITALS: PULSE 71; TEMP 98
[2023-11-20 16:55] VITALS: BP 140/83; RESP 20
== END 2023-11-20 17:15 | disposition home or self-care (01) ==
LOC: OR 12:29
PROVIDERS: ATTEND Orthopaedic Surgery
DX: S83.241A Other tear of medial meniscus, current injury, right knee, initial encounter (principal); S83.281A Other tear of lateral meniscus, current injury, right knee, initial encounter; M94.261 Chondromalacia, right knee; M65.861 Other synovitis and tenosynovitis, right lower leg; M67.51 Plica syndrome, right knee; G47.33 Obstructive sleep apnea (adult) (pediatric); X58.XXXA Exposure to other specified factors, initial encounter
CPT/HCPCS: 29880; 29879; J2250; J1100; J0690; J2405; J2001; J3010; J1885; J2704; J0665

== ENCOUNTER → 2024-04-01 | Outpatient (CLI) | payer BC ==
[2024-04-01 16:28] VITALS: BP 112/73; PULSE 63; RESP 16; TEMP 97.9
--- NOTE | 2024-04-01 16:48 | P.PROGSL ---
Subjective DATE: 04/01/2024 FOLLOW UP VISIT. Patient with obstructive sleep apnea hypopnea syndrome return to sleep center for follow-up visit. Information from previous visit have been reviewed. Patient is using PAP equipment every night for the whole night, getting PAP supplies in time. The patient does not have significant problems with the mask, PAP unit and humidification. [place] sleepiness scale is 5, which is normal. I checked information from PAP unit. PAP unit pressure 6-10, average 9 cm H2O. Usage is 100% for more then 4 hours, average 8.1 hours per night. Leak is 7 l/m, which is in acceptable range. Apnea Hypopnea Index is 1.6, which is normal. MEDICATIONS have been reviewed, please see below. During physical exam: GENERAL: A pleasant patient without any distress. VITAL SIGNS: Please see below, weight is 209.4 lbs. HEENT: PERRLA, EOMI.low position of soft palate, Mallapati 4 . NECK: Supple. No JVD. LUNGS: Clear to percussion and to auscultation. Good air exchange. No wheezing or rhonchi. HEART: S1, S2 regular. ABDOMEN: Soft and nontender.[] EXTREMITIES: No clubbing or cyanosis. STAFF THERAPIST: Awake, alert, and oriented x3. No focal deficit. Impressions: 1. Obstructive sleep apnea-hypopnea syndrome. Patient demonstrated great compliance with treatment, benefiting from treatment. 2. History of allergy. 3. History of dry eye. 4. Status post laparoscopic knee surgery. 5. Overweight, BMI 28.5, patient lost 13 pounds since previous visit. Plan: 1. Continue using PAP equipment every night for the whole night. 2. Sleep hygiene with regular time in bed for at least 7.5-8 hours 3. PAP unit should stay lower then position of the head. 4. Advised patient to remove all remaining water from humidifier canister daily and make it dry after each usage. Refill canister with fresh distilled water before each usage. 5. Watching weight. 6. Precautions related to driving. No driving if feel any sleepiness. 7. I will maintain prescription for PAP supplies including mask, tube, filters. 8. Follow up visit in 6 months or earlier if patient has any problems. Thank you very much for allowing me to participate in the management of your patient. Jamel Garcia MD, PhD, FAASM. Diplomat of [place] [employer], Sleep Medicine Board by [employer] Paraprofessional Interpreter of [facility] [place] Objective - Vital Signs Vital Signs: Vital Signs Temp 97.9 F 04/01/24 16:26 Pulse 63 04/01/24 16:26 Resp 16 04/01/24 16:26 BP 112/73 04/01/24 16:26 Pulse Ox 96 04/01/24 16:26 FiO2 Intake & Output 03/31/24 04/01/24 04/01/24 18:59 06:59 18:59 Weight 94.914 kg Home Medications: Home Medications Medication Instructions Recorded Confirmed Type Fexofenadine HCl [Lashanda Allergy] 180 mg PO DAILY 03/02/18 11/20/23 History [place]-3 Fatty Acids/Fish Oil [Fish 1 each PO DAILY 03/02/18 11/20/23 History Oil 1,000 mg Softgel] Polyvinyl Alcohol/Povidone 1 applic BOTH EYES DAILY 03/02/18 11/20/23 History [Freshkote] Super Digest 1 tab PO DAILY 03/02/18 11/20/23 History HYDROcodone/APAP 5-325MG [[place] 1 tab PO Q6HR PRN #12 tab 11/20/23 Rx 5-325]
== END ==
LOC: 3 N SLEEP 15:56
PROVIDERS: ATTEND Internal Medicine
CPT/HCPCS: 99212